=== PATIENT | male | born 1965 | race Caucasian/White ===

== ENCOUNTER 2019-04-30 05:56 | Inpatient (IN) | payer BC, SELFPAY ==
[2019-04-30] VITALS (20 sets, daily range): BP systolic 87–139; BP diastolic 58–84; PULSE 84–100; RESP 12–21; TEMP 36.1–37.6; O2SAT 95–100; BMI 29.2; BMI 29.0; BMI 29.1
[2019-04-30 06:20] LABS: Absolute Lymphocyte Count 1.22 X10^3/uL (0.83-4.51); Absolute Neutrophil Count 2.7 X10^3/uL (2.0-7.7); Basophil# 0.04 X10^3/uL; Basophil% 0.9 % (0-1); Eosinophil# 0.14 X10^3/uL; Eosinophils% 3.1 % (0-5); Hematocrit 35.1 % (40-54); Hemoglobin 11.2 g/dL (13.0-16.5); Lymphocyte # 1.22 X10^3/ul (4.0); Mean Corp Hgb Conc 31.9 g/dL (32-36); Mean Corpuscular Hgb 28.8 pg (27.0-32.0); Mean Corpuscular Volume 90.2 fL (80-94); Mean Platelet Vol. 9.4 fl (6.2-12.0); Monocyte# 0.36 X10^3/uL; NRBC Flagged by Analyzer 0 % (0-5); Neutrophil # 2.74 X10^3/uL (2.7-7.7); Neutrophil % 60.6 % (47-70); Platelet Count 288 K/mm3 (150-450); RBC Distribution Width SD 46.1 fl (35.1-43.9); Red Blood Count 3.89 M/mm3 (4.6-6.2); White Blood Count 4.5 K/mm3 (4.4-11.0)
[2019-04-30] MEDS: 0.9% Normal Saline 1,000 ML 1000 ML IV (06:22)
--- NOTE | 2019-04-30 06:22 | ED.VIS.GEN ---
History of Present Illness Chief Complaint: Syncope Detail of Chief Complaint: Syncope with collapse Informant: Patient, Friend Onset: Today Context: Sudden Onset Timing: Intermittent Quality: Became pale, diaphoretic with nausea prior to collapsing Location: Work Current Severity: Mild Maximum Severity: Severe Worsened by: Uncertain Relieved by: Better after patient was supine Associated Symptoms: Orthostatic symptoms and dark stool Narrative: Patient is a 53-year-old male with history of peptic ulcer disease who has been taking NSAIDs recently presents with single episode. He was driving to work. He felt sick to his stomach. He felt he needed to use the restroom. Walking to the restroom he collapsed. He was found facedown. There was no noted seizure activity. He had incontinence of stool not urine. There is no history of seizures. He denies headache. He denies visual, ocular auditory symptoms. Denies neck pain. Nu[place] paresthesia, anesthesia motors. Does have an abrasion to the upper lip. He states he has had a GI bleed in the past. He states the stool is not black and does not have an odor to his knowledge. He is on no anticoagulant. He presently does not feel well. He denies cardiac or respiratory symptoms. He denies paresthesia, anesthesia motors. Prior similar symptoms: No Recent Illness/Hospitalization: No - Past Medical History (1) Peptic ulcer disease Status: Acute (2) Hypercholesterolemia Status: Acute Past Medical History - Allergies and Home Meds Allergies/Adverse Reactions: Allergies No Known Allergies Allergy (Verified 04/30/19 06:03) Primary Care Physician: Demetri Benedict [Primary Care Provider] - Prior records reviewed: Yes Surgical History: no surgical history Lives: Alone Smoking Status: Never smoker Alcohol: None Drugs: None Review of Systems General: Denies: Chills, Fever Eyes: Denies: Visual changes - bilaterally, Blurred Vision - bilaterally ENT: Denies: Bilateral ear pain, Rhinorrhea, Sore throat Cardiovascular: Denies: Chest pain, Palpitations Respiratory: Denies: Dyspnea, Cough, Dyspnea on exertion Gastrointestinal: Denies: Abdominal pain, Nausea, Vomiting, Diarrhea, Melena, Hematochezia Genitourinary: Denies: Dysuria, Hematuria, Frequency Musculoskeletal: Denies: Myalgias, Arthralgias, Neck pain, Back pain, Swelling, Extremity Pain, -, - Skin: Reports: Abrasions. Denies: Rash, Wounds Neurological: Denies: Headache, Weakness, Parasthesia, Numbness Endocrine: Denies: Polyuria, Polydipsia Hematologic: Denies: Easy bruising, Easy bleeding Physical Exam Vital Signs/Narrative: Vital Signs Temp Pulse Pulse Pulse Resp BP BP 04/30/19 06:13 89 87 114/72 04/30/19 05:57 98.1 F 88 20 H 119/80 BP BP Pulse Ox 04/30/19 06:13 111/77 106/70 04/30/19 05:57 97 Inital Vital Signs reviewed: Yes General: Well nourished, Well developed, - - Looks pale. Head: Normocephalic, Trauma, - - Full depression. No clinical findings of basilar skull fracture. Eyes: Perrl, EOMI, - - No subconjunctival hemorrhage.. Negative for: Pale conjunctiva, Scleral icterus ENT: Moist mucous membranes, No rhinorrhea, TM's clear. Negative for: Dry mucous membranes, Nasal congestion, Sinus tenderness Neck: Supple, Nontender, No lymphadenopathy, No JVD, - - Pain to palpation of cervical spine with full active range of motion. Cardiovascular: Regular rate, Regular rhythm, No murmurs, Normal S1, Normal S2 Respiratory: No distress, CTA bilaterally, Chest nontender Abdomen: Soft, Nontender, Nondistended, Normal bowel sounds, No masses. Negative for: Hepatomegaly, Splenomegaly, Mass, Pulsatile mass Rectal: - - Melena Back: Nontender, Normal Inspection Extremities: Nontender, No edema Skin: No rash, Pallor, Trauma. Negative for: Normal color Neurological: Alert, Oriented x3, Cranial nerves II-XII grossly intact, Normal Strength, Normal Sensation, Normal DTR, Normal Gait Psychological: Normal affect Diagnostic/Tx/Re-eval Chest X-Ray - ED: 1 View, Read by ED Physician Laboratory Results 04/30/19 04/30/19 06:15 06:15 WBC 4.5 RBC 3.89 L Hgb 11.2 L Hct 35.1 L MCV 90.2 MCH 28.8 MCHC 31.9 L RDW Std Deviation 46.1 H RDW Coeff of Rachel 14.0 Plt Count 288 MPV 9.4 Immature Gran % (Auto) 0.400 Neut % (Auto) 60.6 Lymph % (Auto) 27.0 [place] % (Auto) 8.0 Eos % (Auto) 3.1 Baso % (Auto) 0.9 Absolute Neuts (auto) 2.7 Absolute Lymphs (auto) 1.22 Nucleated RBC % 0 Sodium 140 Potassium 4.5 Chloride 109 H Carbon Dioxide 27.0 Anion Gap 4 L BUN 42 H Creatinine 0.97 Estim Creat Clear Calc 91.98 Est GFR (MDRD) Af Amer 104 Est GFR (MDRD) Non-Af 86 BUN/Creatinine Ratio 43.3 H Glucose 158 H Calcium 8.2 L H&H is 11.2 and 35.1. There is no prior labs for comparison. BUN to creatinine ratio is markedly elevated. With orthostatic symptoms and melena patient was typed and screened. Dr. Frazier will be paged at 7 AM since patient will require EGD and admission to ICU. He will receive Protonix IV push. NG was ordered to determine if he is actively bleeding. - Medical Decision Making Orthostatic vital signs were positive. He could not stand. He became pale lightheaded and had to sit. With history of peptic ulcer disease dark stool need to evaluate for GI bleed. He was see 1 L of normal saline wide open. Appropriate blood work was ordered to assess BUN to creatinine ratio, H&H. I was informed that he he did have incontinence of stool. Will assess the color of her stool and test for blood. - Critical Care Time Critical care time (excluding procedures): 30-74 minutes, Discussing w/Patient &/or Family/Production Line, Discussing w/Consultants, Arranging Admission or Transfer - Critical care time 33 minutes ED Disposition - Plan for ED Patient: Disposition: Home or Assisted Living Diagnosis: GI bleed, Orthostatic hypotension, Syncope and collapse Referrals: Demetri Benedict [Primary Care Provider] -
[2019-04-30 06:34] LABS: Anion Gap 4 (5-15); BUN 42 mg/dL (7-18); BUN/Creat Ratio 43.3 RATIO (10-20); Calcium,Total 8.2 mg/dL (8.5-10.1); Chloride 109 mmol/L (98-107); Creatinine, Serum 0.97 mg/dL (0.70-1.30); EST Glomerular Filtration Rate 86 mL/min (>60); Est Glom Filt Rate - Afr Amer 104 mL/min (>60); Estimated Creatinine Clearance 91.98 ml/min; Glucose 158 mg/dL (74-106); Potassium 4.5 mmol/L (3.5-5.1); Sodium Level 140 mmol/L (136-145)
--- NOTE | 2019-04-30 06:55 | ED.RN ---
PATIENT WAS INCONTINENT OF A LARGE AMOUNT OF THICK TAR STOOL. INCONTINENCE CARE DONE. DR. PAL.
--- NOTE | 2019-04-30 06:58 | EKG12_ITS ---
Test Reason : Blood Pressure : / mmHG Vent. Rate : 090 BPM Atrial Rate : 090 BPM P-R Int : 154 ms QRS Dur : 098 ms QT Int : 358 ms P-R-T Axes : 055 005 028 degrees QTc Int : 437 ms Normal sinus rhythm Normal ECG Confirmed by JIM SNELL, JAVIER ([id number]), publications editor ROSANA ESTRADA ([id number]) on 05/04/2019 10:36:46 AM Referred By: KRISTINA Confirmed By:LALO FERNANDEZ MD
--- NOTE | 2019-04-30 07:23 | RAD_ITS ---
STUDY: X-RAY - ABDOMEN REASON FOR EXAM: Male, 53 years old. NG tube placement for GI bleed TECHNIQUE: Single AP view of the abdomen. The pelvis and lower abdomen are not included in the image. COMPARISON: None. FINDINGS: Normal visualized lung bases. Tip of the nasogastric tube is in the proximal body of the stomach. However, the sidehole for the tube projects above the level of the diaphragmatic hiatus and it is probably in the esophagus. There is an unremarkable bowel gas pattern. There is no demonstrated free abdominal air. The visualized liver, spleen and kidneys are grossly normal in size and morphology. Normal soft tissue structures. Normal visualized osseous structures. RAD/Abdomen Single View IMPRESSION: Tip of the nasogastric tube is in the stomach, however, the sidehole is probably within the distal esophagus. Recommend advancing the nasogastric tube at least 5 cm. Electronically Signed: Dhiraj William MD at 8:01 EST , Service support ,
--- NOTE | 2019-04-30 08:06 | ED.RN ---
PATIENT HAD A MEDIUM SIZED BLACK TARRY STOOL ON THE BED SILVERMAN. INCONTINENCE CARE DONE.
--- NOTE | 2019-04-30 08:31 | HP.PCM_ITS ---
Problem List (1) GI bleed Status: Acute Qualifiers: GI bleed type/associated pathology: unspecified gastrointestinal hemorrhage type Qualified Code(s): K92.2 - Gastrointestinal hemorrhage, unspecified (2) Syncope and collapse Status: Acute History of Present Illness Date of Admission: 04/30/19 Chief Complaint: syncope The patient is a 53 year old M was in his normal state of health and then today felt and urgency to have bowel movements. Got out of the car to go to the bathroom and then passed out. Patient was brought to the hospital and when he presented had a very large dark melena. Patient did not have any hematemesis. NG tube was placed and did not have any significant bleeding. Patient about a month ago fell when he was intoxicated and broke some ribs. Since then, he has been taking aspirin twice daily. He does not know the dosing of the aspirin. Patient had a similar situation roughly 8 years ago where he had peptic ulcer disease and melena. [] Past Medical History Medical History: Medical History (Last Updated 04/30/19 @ 08:32 by Dar Sánchez DO) Hypercholesteremia E78.00 Allergies No Known Allergies Allergy (Verified 04/30/19 06:03) Home Medications: Ambulatory Orders Medication Instructions Recorded Ezetimibe 1 tab PO DAILY 04/30/19 Fenofibrate Nanocrystallized 1 tab PO DAILY 04/30/19 [Fenofibrate] Surgical History: no surgical history Lives: Alone Smoking Status: Never smoker Alcohol: Occasional - 2 times/week Drugs: None - *Family History Maternal History Items: - - no CAD Review of Systems Constitutional: Reports: Weakness. Denies: Anorexia, Chills, Fever Eyes: Denies: Blurred vision, Double vision HEENT: Denies: Difficulty Hearing, Difficulty Swallowing, Dysphasia, Ear Pain, Eye Pain Cardiovascular: Denies: Chest Pain, Claudication, Chest Pressure, Chest Tightness, Edema Respiratory: Denies: Cough, Shortness of Breath Gastrointestinal: Reports: Melena. Denies: Abdominal Pain, Nausea, Vomiting Genitourinary: Denies: Dysuria Musculoskeletal: Denies: Joint Pain, Joint Tenderness Skin: Denies: Dryness, Jaundice Neurological: Denies: Numbness, Tingling, Focal weakness Psychiatric: Denies: Anxiety, Depression Hematologic/ Lymphatic: Denies: Easy Bruising, Easy Bleeding Comment: All review systems are otherwise negative except for as mentioned above and in HPI. VTE Information - Inpt Only VTE Present on Admission: No VTE Mechan Device Prophylaxis: SCD's VTE Pharm Prophylaxis ordered?: No Reason prophylaxis not ordered:: Medical Contraindication Patient Problems: Active and Suspected Problems (Last Updated 04/30/19 @ 08:32 by Dar Sánchez DO) Peptic ulcer disease (Acute) Hypercholesterolemia (Acute) GI bleed (Acute) Orthostatic hypotension (Acute) Syncope and collapse (Acute) - Physical Exam Vitals/I&O's: Vital Signs Temp Pulse Resp BP Pulse Ox 36.7 C 85 21 H 102/62 96 04/30/19 05:57 04/30/19 08:06 04/30/19 08:06 04/30/19 08:06 04/30/19 08:06 Oxygen Delivery Method Room Air Weight: 92.533 kg Body Mass Index (BMI) 29.2 Intake and Output for Last 24 Hours 04/28/19 04/29/19 04/30/19 23:59 23:59 23:59 Intake Total 1035 / 1035 Balance 1035 / 1035 General: Alert, Cooperative, - - pale HEENT: Atraumatic, Normocephalic, - - no icterus Oral: Moist Mucosa, No Gingival or Mucosal Lesions/ Ulcerations Neck: No Nodes, Trachea Midline Lungs: Clear to auscultation, Normal air movement, No rhonchi, No wheeze, No rales Cardiovascular: Regular rate, Regular Rhythm, Normal S1, Normal S2, No murmurs Abdomen: Bowel Sounds Present, Soft, Non Tender, Non-Distended, No Hepato- splenomegaly, - - Patient had dark gelatinous melena Extremities: No edema, No Calf Tenderness Skin: No rashes, No breakdown Musculoskeletal: No Tenderness to Palpation of Joints or Extremities, No Muscle Wasting Neurological: Neuro grossly intact, Coordination normal Psych/Mental Status: Appropriate, Flat Affect Laboratory Results 04/30/19 06:15: WBC 4.5, RBC 3.89 L, Hgb 11.2 L, Hct 35.1 L, MCV 90.2, MCH 28.8, MCHC 31.9 L, RDW Std Deviation 46.1 H, RDW Coeff of Rachel 14.0, Plt Count 288, MPV 9.4, Immature Gran % (Auto) 0.400, Neut % (Auto) 60.6, Lymph % (Auto) 27.0, [place] % (Auto) 8.0, Eos % (Auto) 3.1, Baso % (Auto) 0.9, Absolute Neuts (auto) 2.7, Absolute Lymphs (auto) 1.22, Nucleated RBC % 0 04/30/19 06:15: Sodium 140, Potassium 4.5, Chloride 109 H, Carbon Dioxide 27.0, Anion Gap 4 L, BUN 42 H, Creatinine 0.97, Estim Creat Clear Calc 91.98, Est GFR (MDRD) Af Amer 104, Est GFR (MDRD) Non-Af 86, BUN/Creatinine Ratio 43.3 H, Glucose 158 H, Calcium 8.2 L 04/30/19 07:05: Blood Type AB POSITIVE, Antibody Screen NEGATIVE Assessment/Plan All Active Problems (Last Updated 04/30/19 @ 08:32 by Dar Sánchez DO) Peptic ulcer disease (Acute) Hypercholesterolemia (Acute) GI bleed (Acute) Orthostatic hypotension (Acute) Syncope and collapse (Acute) 1. Acute GI bleed * Suspected upper source * Patient has known history of peptic ulcer disease roughly 8 years ago and has recently been taking aspirin twice daily for broken rib that he sustained when he fell when he was intoxicated * Will place the patient on a Protonix drip. Patient did receive IV pantoprazole in the emergency room * Discussed with Dr. Frazier, who will see the patient in consultation and will look to possibly performing an endoscopy today. * Patient to be screened in the emergency room. We will cycle H&H every 6 hours for the next 24 hours 2. Syncope * May be vasovagal but cannot rule out acute blood loss at this time. Is possible the blood count may be lagging behind the actual levels * IV fluids 3. VTE prophylaxis: SCDs. Chemical prophylaxis is contraindicated in light of the acute hemorrhage. Code Visit Inpatient E&M: 24138 Init Hosp L3
--- NOTE | 2019-04-30 09:01 | CON.PCM_ITS ---
Problem List (1) GI bleed Status: Acute Qualifiers: GI bleed type/associated pathology: unspecified gastrointestinal hemorrhage type Qualified Code(s): K92.2 - Gastrointestinal hemorrhage, unspecified (2) Orthostatic hypotension Status: Acute (3) Syncope and collapse Status: Acute Reason for Consult Date of Consultation: 04/30/19 Reason for Consultation: GI bleed History of Present Illness: The patient is a 53 year old M who presented to the ED following a syncopal episode just prior to work. Patient stated he was riding to work and was not feeling well. He noted feeling dizzy and nauseated. Patient also noted he felt as though he needed to have a bowel movement. When he went to get out of his car, he collapsed and went unconscious. This was apparently a witnessed fall. Patient's friend was in the room during the interview and noted the patient hit his head and lip in the parking lot and also stated he was convulsing. Bystander called 911. Bystander noted patient's entire body was shaking for approximately 1 minute. Patient noted darker than normal stools for the last several days. He denies bright red blood or tarry stools at home. He denies hematemesis. He notes taking full strength aspirin twice daily for 1 month for a broken rib. He noted he fell while intoxicated. He noted in the ED he was incontinent of stool and had two moderate sized black tarry stools. Patient notes he had similar symptoms approximately 8 years ago and was hospitalized at [facility]. He had an upper scope at that time. He notes he was on medication for a short time period and then stopped. He denies previous myocardial infarction, stroke and blood clots. He denies previous history of complications with anesthesia. He denies previous colonoscopy. He denies smoking and illicit drug use. He notes consuming alcohol weekly. He was not specific on how much he drinks. Past Medical History Medical History: Medical History (Last Reviewed 04/30/19 @ 10:53 by Susan Ervin PA-C) Hypercholesteremia E78.00 Allergies No Known Allergies Allergy (Verified 04/30/19 06:03) Home Medications: Ambulatory Orders Medication Instructions Recorded Ezetimibe 1 tab PO DAILY 04/30/19 Fenofibrate Nanocrystallized 1 tab PO DAILY 04/30/19 [Fenofibrate] Fluticasone 0.05% [Flonase Nasal 2 spry NARES DAILY 04/30/19 [place]] Surgical History: - - Cervical surgery 2000 and EGD 8 years ago Psychiatric History: No pertinent psych hx Lives: Alone Smoking Status: Never smoker Alcohol: Occasional Drugs: None - *Family History Maternal History Items: - - no CAD Paternal History Items: No pertinent history Review of Systems Constitutional: Reports: Weakness, Fatigue HEENT: Denies: Head Aches, Sinus Congestion, Sinus Drainage Cardiovascular: Denies: Chest Pain, Palpitations Respiratory: Denies: Cough, Shortness of breath at rest, Sputum production Gastrointestinal: Reports: Diarrhea, Nausea, Melena. Denies: Abdominal Pain Genitourinary: Denies: Dysuria Musculoskeletal: Denies: Joint Pain, Joint Tenderness Skin: Reports: Wounds. Denies: Rash Neurological: Denies: Numbness, Tingling, Focal weakness Psychiatric: Denies: Anxiety, Depression, Homicidal Ideations, Suicidal Ideations Hematologic/ Lymphatic: Reports: Anemia. Denies: Easy Bruising, Easy Bleeding Patient Problems: Active and Suspected Problems (Last Updated 04/30/19 @ 08:32 by Dar Sánchez DO) Peptic ulcer disease (Acute) Hypercholesterolemia (Acute) GI bleed (Acute) Orthostatic hypotension (Acute) Syncope and collapse (Acute) - Physical Exam Vitals/I&O's: Vital Signs Temp Pulse Resp BP Pulse Ox 97.3 F L 89 16 122/79 H 97 04/30/19 08:40 04/30/19 08:40 04/30/19 08:40 04/30/19 08:40 04/30/19 08:40 Oxygen Delivery Method Room Air Weight: 204 lb Body Mass Index (BMI) 29.2 Intake and Output for Last 24 Hours 04/28/19 04/29/19 04/30/19 23:59 23:59 23:59 Intake Total 1035 / 1035 Balance 1035 / 1035 General: Alert, Oriented x3, Cooperative HEENT: Atraumatic, PERRLA, EOMI, Normocephalic, - - Bloody nose noted Neck: Supple, No JVD, Negative Carotid Bruits Lungs: Clear to auscultation, Normal air movement Cardiovascular: Regular rate, No murmurs Abdomen: Soft, Hypoactive Bowel Sounds, Tender - epigastric region Extremities: No edema, Capillary Refill Less than 3 Seconds Skin: - - Abrasion on left forehead Musculoskeletal: No Tenderness to Palpation of Joints or Extremities Neurological: Neuro grossly intact Psych/Mental Status: Normal Affect, Appropriate Laboratory Results 04/30/19 06:15: WBC 4.5, RBC 3.89 L, Hgb 11.2 L, Hct 35.1 L, MCV 90.2, MCH 28.8, MCHC 31.9 L, RDW Std Deviation 46.1 H, RDW Coeff of Rachel 14.0, Plt Count 288, MPV 9.4, Immature Gran % (Auto) 0.400, Neut % (Auto) 60.6, Lymph % (Auto) 27.0, [place] % (Auto) 8.0, Eos % (Auto) 3.1, Baso % (Auto) 0.9, Absolute Neuts (auto) 2.7, Absolute Lymphs (auto) 1.22, Nucleated RBC % 0 04/30/19 06:15: Sodium 140, Potassium 4.5, Chloride 109 H, Carbon Dioxide 27.0, Anion Gap 4 L, BUN 42 H, Creatinine 0.97, Estim Creat Clear Calc 91.98, Est GFR (MDRD) Af Amer 104, Est GFR (MDRD) Non-Af 86, BUN/Creatinine Ratio 43.3 H, Glucose 158 H, Calcium 8.2 L 04/30/19 07:05: Blood Type AB POSITIVE, Antibody Screen NEGATIVE Current Medications Acetaminophen (Tylenol) 650 mg RECTAL Q4H PRN PRN PRN Reason: Pain Score 1-10/Temp > 100.7 F Acetaminophen (Tylenol) 650 mg PO Q6H PRN PRN PRN Reason: Pain Score 1-10/10 Glucagon () 1 mg IM .X1 PRN PRN Reason: Hypoglycemia Sodium Chloride () 1,000 mls @ 150 mls/hr IV .Q6H40M LISA Dextrose (Dextrose 10%-Water) 250 mls @ 999 mls/hr IV .Q16M PRN; Protocol PRN Reason: HYPOGLYCEMIA Morphine Sulfate () 2 mg IV Q3H PRN PRN PRN Reason: Pain Score 6-10/10 Ondansetron HCl (Zofran) 4 mg IV Q8H PRN PRN PRN Reason: NAUSEA/VOMITING Sodium Chloride () 10 - 40 ml IV UD PRN PRN Reason: SALINE FLUSH Assessment/Plan All Active Problems (Last Updated 04/30/19 @ 08:32 by Dar Sánchez DO) Peptic ulcer disease (Acute) Hypercholesterolemia (Acute) GI bleed (Acute) Orthostatic hypotension (Acute) Syncope and collapse (Acute) I have been consulted in conjunction with Dr. Frazier Impression: Upper GI bleed. Melena Plan: Patient was discussed with Dr. Frazier. Dr. Frazier will plan to perform an upper scope with MAC. Procedure details, risks and benefits have been explained to the patient. Patient has had the opportunity to ask and have questions answered. Patient verbally understands and agrees with the plan. Will place patient NPO. Keep NG tube on low intermittent suction. Hopeful NG tube can be removed after the EGD. Thank you for allowing us to participate in this patient's care. Code Visit Office Visits / Consults: [id number] IP Consult L3
[2019-04-30] MEDS: 0.9% Normal Saline 1,000 ML 150 ML IV ×3 (09:15→20:08)
[2019-04-30] MEDS: Acetaminophen 325 MG Tablet 650 MG PO ×2 (09:16→20:07)
--- NOTE | 2019-04-30 10:35 | CT_ITS ---
STUDY: CT BRAIN WITHOUT CONTRAST REASON FOR EXAM: Male, 53 years old. PT STATED SYNCOPE AND COLLAPSE TODAY, ORTHOSTATIC HYPOTENSION, UPPER GI BLEED RADIATION DOSAGE (If Supplied By Facility): CTDIvol = ( 44.99 ) mGy, DLP = ( 745.49 ) mGycm TECHNIQUE: Transaxial CT imaging of the brain was performed without administration of intravenous contrast material. Individualized dose optimization techniques were used for this CT. COMPARISON: No relevant priors. FINDINGS: Normal soft tissue structures. Normal calvarium. Normal size ventricles and extra-axial spaces for the patient''s age. Normal white matter tracts of the cerebral hemispheres. Normal basal ganglia and thalami. Normal brainstem. Normal cerebellum. There is no intracranial hemorrhage. There are no findings of an acute ischemic infarction. Normal visualized paranasal sinuses. CT/Brain/Head without Contrast IMPRESSION: Normal unenhanced CT scan of the brain. Electronically Signed: Theodore Greenwood MD at 11:01 EST Tel , Service support ,
--- NOTE | 2019-04-30 11:03 | SUR.PREOP ---
Pt. checked into healthcare consulting manager.
--- NOTE | 2019-04-30 11:30 | EGD_PTH ---
PATIENT: BEE GARRETT LOC: [facility] U#:[id number] AGE/SX: 53/M ROOM: [facility] RE04/30/[address]: Dr. Dar Sánchez DO : 1965 BED: 1 DIS: 05/02/2019 SPEC #: [id number] RECD: 04/30/19 13:41 STATUS: HOANG RE #: [id number] ARUNA: 04/30/19 11:[address]: Suhail Frazier DEPT: SURGICAL PATHOLOGY RECD BY: Mark Shannon ENTERED: 04/30/19 14:16 SP TYPE: EGD BIOPSY OTHR DR: MD Dr. Dar Lew DO Dr. Mehrdad Tavallaee, MD Tissues: Gastric mucous membrane Procedures: Surgery Specimen Level IV Comments: @ Ordering doctor for SUIV edited from to @ by ZEINA at 04/30/19 1438 @ Submitting doctor edited from to @ by ZEINA at 04/30/19 1438 HEADER OPERATION: EGD ([facility]) PRE-OP DIAGNOSIS: GI bleed TISSUE SUBMITTED: Antrum biopsy for H. pylori and histo MICROSCOPIC DIAGNOSIS Antrum biopsy: Mild gastritis. See microscopic description and comment. ARELY:bridget 05/01/19 COMMENT The results of immunohistochemistry for Helicobacter pylori will be reported separately ([id number]). MICROSCOPIC DESCRIPTION Slides are reviewed. The specimen shows fragments of gastric mucosa with chronic inflammatory cell infiltrates in the lamina propria consisting of lymphocytes and plasma cells, consistent with mild chronic gastritis. GROSS DESCRIPTION Received in fixative is one container labeled with the patient's name and designated antrum biopsy. The specimen consists of multiple irregular fragments of light porras soft tissue that in aggregate measure 0.8 x 0.3 x 0.1 cm. The specimen is totally submitted in one cassette. / ARELY:bridget 04/30/19 TC:5 CPT: 43440
--- NOTE | 2019-04-30 11:30 | IMM_PTH ---
PATIENT: BEE GARRETT LOC: [facility] U#:[id number] AGE/SX: 53/M ROOM: [facility] RE04/30/[address]: Dr. Dar Sánchez DO : 1965 BED: 1 DIS: 05/02/2019 SPEC #: [id number] RECD: 04/30/19 14:42 STATUS: HOANG REQ #: [id number] ARUNA: 04/30/19 11:[address]: Suhail Frazier DEPT: IMMUNOHISTOCHEMISTRY RECD BY: Vickie Worley ENTERED: 04/30/19 14:42 SP TYPE: IMMUNO OTHR DR: DO Dr. Demetri Wong MD Tissues: Stomach, NOS Procedures: H Pylori (initial) PHYSICIAN & INSTITUTION [place] [id number] SPECIMEN INFORMATION: Tissue Source: Antrum biopsy Clinical Info: GI bleed Specimen Number: [id number] CPT code: 80157 METHODOLOGY: Deparaffinized sections of prefer/formalin-fixed tissue or PAP/DQ stained slides are incubated with monoclonal/polyclonal antibodies/oligonucleotide probes. Localization is made via biotin free immunoperoxidase method. Appropriate controls are performed and reacted as expected. Results on target cell population are indicated in the following table: RESULTS: ANTIBODY / CLONE RESULT H Pylori (polyclonal) negative These tests were developed and their performance characteristics determined by [facility]. They may not have been cleared or approved by the U.S. Food and Drug Administration. The FDA has determined that such clearance or approval is not necessary. INTERPRETATION: Antrum biopsy: Negative for Helicobacter pylori organisms. SJ:bridget 05/01/19
--- NOTE | 2019-04-30 11:42 | OP.EGD_ITS ---
Patient Name: Jose Hoyos Procedure Date: 04/30/2019 11:02 AM Date of : 1965 Age: 53 Procedure: Upper GI endoscopy Indications: Melena Providers: Suhail Frazier MD Medicines: Monitored Anesthesia Care Patient Profile: This is a 53 year old male. Refer to note in patient chart for documentation of history and physical. Complications: No immediate complications. Estimated blood loss: Minimal. Procedure: Pre-Anesthesia Assessment: - Prior to the procedure, a History and Physical was performed, and patient medications and allergies were reviewed. The patient's tolerance of previous anesthesia was also reviewed. The risks and benefits of the procedure and the sedation options and risks were discussed with the patient. All questions were answered, and informed consent was obtained. Prior Anticoagulants: The patient has taken aspirin, last dose was 1 day prior to procedure. After reviewing the risks and benefits, the patient was deemed in satisfactory condition to undergo the procedure. After obtaining informed consent, the endoscope was passed under direct vision. Throughout the procedure, the patient's blood pressure, pulse, and oxygen saturations were monitored continuously. The gastroscope was introduced through the mouth, and advanced to the second part of duodenum. The upper GI endoscopy was accomplished without difficulty. The patient tolerated the procedure well. Scope In: 11:28:22 AM Scope Out: 11:38:15 AM Total Procedure Duration Time 0 hours 9 minutes 53 seconds Findings: A large amount of a phytobezoar was found in the gastric fundus. One non-bleeding cratered duodenal ulcer with no stigmata of bleeding was found in the second portion of the duodenum. Biopsies were taken with a cold forceps in the gastric antrum for Helicobacter pylori testing. Impression: - A large amount of a phytobezoar in the stomach. - One non-bleeding duodenal ulcer with no stigmata of bleeding. - Biopsies were taken with a cold forceps for Helicobacter pylori testing. Recommendation: - Return patient to [facility] for ongoing care. - Clear liquid diet. - Continue present medications. Procedure Code(s): --- Professional --- 34019, Esophagogastroduodenoscopy, flexible, transoral; with biopsy, single or multiple Diagnosis Code(s): --- Professional --- T18.2XXA, Foreign body in stomach, initial encounter K26.9, Duodenal ulcer, unspecified as acute or chronic, without hemorrhage or perforation K92.1, Melena (includes Hematochezia) CPT copyright 2017 [employer]. All rights reserved. The codes documented in this report are preliminary and upon director of exhibits review may be revised to meet current compliance requirements. Suhail Frazier MD 04/30/2019 11:41:32 AM This report has been signed electronically. Number of Addenda: 0 Note Initiated On: 04/30/2019 11:02 AM
--- NOTE | 2019-04-30 11:42 | OP.CCLET_ITS ---
04/30/2019 Demetri Benedict Re : Upper GI endoscopy procedure for Jose Hoyos Dear Jak This procedure was performed on April. My impressions and recommendations are as follows: Impressions : - A large amount of a phytobezoar in the stomach. - One non-bleeding duodenal ulcer with no stigmata of bleeding. - Biopsies were taken with a cold forceps for Helicobacter pylori testing. Recommendations : - Return patient to [facility] for ongoing care. - Clear liquid diet. - Continue present medications. My findings are described in the full procedure note, which is enclosed. If I can be of further assistance, please feel free to contact me at Doctor phone number(s): , Work: . Sincerely, Suhail Frazier MD 04/30/2019 11:41:32 AM This report has been signed electronically.
[2019-04-30 12:53] LABS: Hematocrit 31.4 % (40-54); Hemoglobin 10.1 g/dL (13.0-16.5)
[2019-04-30] MEDS: Sucralfate 1 GM Tablet PO ×2 (15:49→20:07)
[2019-04-30 18:13] LABS: Hemoglobin 9.4 g/dL (13.0-16.5)
[2019-05-01] VITALS (15 sets, daily range): BP systolic 98–125; BP diastolic 59–84; PULSE 81–107; RESP 16–18; TEMP 36.6–37; O2SAT 95–99
[2019-05-01 00:41] LABS: Hematocrit 26.9 % (40-54); Hemoglobin 8.9 g/dL (13.0-16.5)
[2019-05-01] MEDS: 0.9% Normal Saline 1,000 ML 150 ML IV (02:53)
[2019-05-01] MEDS: Sucralfate 1 GM Tablet PO ×4 (06:13→20:58)
[2019-05-01 06:41] LABS: Hematocrit 26.6 % (40-54); Hemoglobin 8.5 g/dL (13.0-16.5); Mean Corpuscular Hgb 28.8 pg (27.0-32.0); Mean Corpuscular Volume 90.2 fL (80-94); Mean Platelet Vol. 9.5 fl (6.2-12.0); Platelet Count 251 K/mm3 (150-450); RBC Distribution Width CV 14.6 % (11.6-14.6); RBC Distribution Width SD 47.1 fl (35.1-43.9); Red Blood Count 2.95 M/mm3 (4.6-6.2); White Blood Count 5.3 K/mm3 (4.4-11.0)
[2019-05-01 07:01] LABS: Anion Gap 1 (5-15); BUN 17 mg/dL (7-18); BUN/Creat Ratio 17.5 RATIO (10-20); Chloride 116 mmol/L (98-107); Creatinine, Serum 0.97 mg/dL (0.70-1.30); EST Glomerular Filtration Rate 86 mL/min (>60); Est Glom Filt Rate - Afr Amer 104 mL/min (>60); Estimated Creatinine Clearance 91.98 ml/min; Glucose 102 mg/dL (74-106); Potassium 3.8 mmol/L (3.5-5.1); Sodium Level 145 mmol/L (136-145)
--- NOTE | 2019-05-01 07:51 | PCM.PN.SRG ---
Patient Problems: Active and Suspected Problems (Last Reviewed 04/30/19 @ 10:53 by Susan Ervin PA-C) Peptic ulcer disease (Acute) Hypercholesterolemia (Acute) GI bleed (Acute) Orthostatic hypotension (Acute) Syncope and collapse (Acute) Subjective: Patient continues to have black tarry stools overnight and this morning. He is not complaining of any abdominal pain. Complains of left knee pain. - Physical Exam Vitals/I&O's: Vital Signs Temp Pulse Resp BP Pulse Ox 98.1 F 88 17 108/65 97 05/01/19 06:15 05/01/19 06:15 05/01/19 06:15 05/01/19 06:15 05/01/19 06:15 Oxygen Delivery Method Room Air Weight: 202 lb 13.204 oz Body Mass Index (BMI) 29.0 Intake and Output for Last 24 Hours 04/29/19 04/30/19 05/01/19 23:59 23:59 23:59 Intake Total 4740.0 / 4740.0 2550 / 2550 Output Total 775 / 775 150 / 150 Balance 3965.0 / 3965.0 2400 / 2400 General: Alert, Oriented x3 Neck: No JVD Lungs: Normal air movement Cardiovascular: Regular rate, Regular Rhythm Abdomen: Soft, Non Tender, Non-Distended Laboratory Results 04/30/19 12:36: Hgb 10.1 L, Hct 31.4 L 04/30/19 18:00: Hgb 9.4 L, Hct 29.0 L 05/01/19 00:17: Hgb 8.9 L, Hct 26.9 L 05/01/19 06:20: WBC 5.3, RBC 2.95 L, Hgb 8.5 L, Hct 26.6 L, MCV 90.2, MCH 28.8, MCHC 32.0, RDW Std Deviation 47.1 H, RDW Coeff of Rachel 14.6, Plt Count 251, MPV 9.5 05/01/19 06:20: Sodium 145, Potassium 3.8, Chloride 116 H, Carbon Dioxide 28.0, Anion Gap 1 L, BUN 17, Creatinine 0.97, Estim Creat Clear Calc 91.98, Est GFR (MDRD) Af Amer 104, Est GFR (MDRD) Non-Af 86, BUN/Creatinine Ratio 17.5, Glucose 102, Calcium 8.0 L Current Medications Acetaminophen (Tylenol) 650 mg RECTAL Q4H PRN PRN PRN Reason: Pain Score 1-10/Temp > 100.7 F Acetaminophen (Tylenol) 650 mg PO Q6H PRN PRN PRN Reason: Pain Score 1-10/10 Last Admin: 04/30/19 20:07 Dose: 650 mg Documented by: Glucagon () 1 mg IM .X1 PRN PRN Reason: Hypoglycemia Sodium Chloride () 1,000 mls @ 150 mls/hr IV .Q6H40M [facility] Last Admin: 05/01/19 02:53 Dose: 150 mls/hr Documented by: Dextrose (Dextrose 10%-Water) 250 mls @ 999 mls/hr IV .Q16M PRN; Protocol PRN Reason: HYPOGLYCEMIA Pantoprazole Sodium 40 mg/ (Sodium Chloride) 110 mls @ 330 mls/hr IV Q12 [facility] Last Infusion: 04/30/19 20:35 Dose: Infused Documented by: Morphine Sulfate () 2 mg IV Q3H PRN PRN PRN Reason: Pain Score 6-10/10 Ondansetron HCl (Zofran) 4 mg IV Q8H PRN PRN PRN Reason: NAUSEA/VOMITING Sodium Chloride () 10 - 40 ml IV UD PRN PRN Reason: SALINE FLUSH Sucralfate (Carafate) 1 gm PO 1HR_ACHS [facility] Last Admin: 05/01/19 06:13 Dose: 1 gm Documented by: Medical Necessity - Tobacco Use Smoking Status: Never smoker Assessment/Plan All Active Problems (Last Reviewed 04/30/19 @ 10:53 by Susan Ervin PA-C) Peptic ulcer disease (Acute) Hypercholesterolemia (Acute) GI bleed (Acute) Orthostatic hypotension (Acute) Syncope and collapse (Acute) 53-year-old male with upper GI bleed The patient continues to have his hemoglobin slowly downtrending. He also continues to have black tarry stools. He is not having any abdominal pain. He did not have any nausea or vomiting overnight. Yesterday a duodenal ulcer was found with no stigmata of bleeding. I will repeat EGD this morning. Patient is also complaining of left knee pain. I will order x-rays of his left knee. I explained endoscopy in detail to the patient. I explained the risks including but not limited to stroke or heart attack with anesthesia, perforation of the GI tract, bleeding, infection. I explained that any of these could necessitate further emergency surgery. The patient understands and all questions were answered sufficiently. The patient wishes to proceed with procedure. Suhail Frazier MD Pager: [facility] [address] [place] [address] [address] [place] [address] Office:
[2019-05-01] MEDS: Lactated Ringers 1,000 ML 100 ML IV ×3 (07:57→23:51)
--- NOTE | 2019-05-01 07:58 | NURSING ---
pt off unit at 0738 for repeat EGD due to drop in hgb. Dr. Frazier states he will also be ordering xray of left knee due to continue pain since admission.
--- NOTE | 2019-05-01 08:44 | OP.CCLET_ITS ---
05/01/2019 Demetri Benedict Re : Upper GI endoscopy procedure for Jose Hoyos Dear Jak This procedure was performed on Wednesday, May 01, 2019. My impressions and recommendations are as follows: Impressions : - One non-bleeding duodenal ulcer with no stigmata of bleeding. - Normal esophagus. - Normal stomach. - No specimens collected. Recommendations : - Return patient to [facility] for ongoing care. - Clear liquid diet. - Continue present medications. - To visualize the small bowel, perform video capsule endoscopy. My findings are described in the full procedure note, which is enclosed. If I can be of further assistance, please feel free to contact me at Doctor phone number(s): , Work: . Sincerely, Suhail Frazier MD 05/01/2019 8:44:23 AM This report has been signed electronically.
--- NOTE | 2019-05-01 08:44 | OP.EGD_ITS ---
Patient Name: Jose Hoyos Procedure Date: 05/01/2019 8:18 AM Date of : 1965 Age: 53 Procedure: Upper GI endoscopy Indications: Melena, Suspected upper gastrointestinal bleeding Providers: Suhail Frazier MD Medicines: Monitored Anesthesia Care Patient Profile: This is a 53 year old male. Refer to note in patient chart for documentation of history and physical. Complications: No immediate complications. Estimated blood loss: None. Procedure: Pre-Anesthesia Assessment: - Prior to the procedure, a History and Physical was performed, and patient medications and allergies were reviewed. The patient's tolerance of previous anesthesia was also reviewed. The risks and benefits of the procedure and the sedation options and risks were discussed with the patient. All questions were answered, and informed consent was obtained. Prior Anticoagulants: The patient has taken no previous anticoagulant or antiplatelet agents. After reviewing the risks and benefits, the patient was deemed in satisfactory condition to undergo the procedure. After obtaining informed consent, the endoscope was passed under direct vision. Throughout the procedure, the patient's blood pressure, pulse, and oxygen saturations were monitored continuously. The gastroscope was introduced through the mouth, and advanced to the fourth part of duodenum. The upper GI endoscopy was accomplished without difficulty. The patient tolerated the procedure well. Scope In: 8:27:20 AM Scope Out: 8:30:59 AM Total Procedure Duration Time 0 hours 3 minutes 39 seconds Findings: One non-bleeding cratered duodenal ulcer with no stigmata of bleeding was found in the second portion of the duodenum. The esophagus was normal. The stomach was normal. Impression: - One non-bleeding duodenal ulcer with no stigmata of bleeding. - Normal esophagus. - Normal stomach. - No specimens collected. Recommendation: - Return patient to [facility] for ongoing care. - Clear liquid diet. - Continue present medications. - To visualize the small bowel, perform video capsule endoscopy. Procedure Code(s): --- Professional --- 35363, Esophagogastroduodenoscopy, flexible, transoral; diagnostic, including collection of specimen(s) by brushing or washing, when performed (separate procedure) Diagnosis Code(s): --- Professional --- K26.9, Duodenal ulcer, unspecified as acute or chronic, without hemorrhage or perforation K92.1, Melena (includes Hematochezia) CPT copyright 2017 [employer]. All rights reserved. The codes documented in this report are preliminary and upon ammunition specialist review may be revised to meet current compliance requirements. Suhail Frazier MD 05/01/2019 8:44:23 AM This report has been signed electronically. Number of Addenda: 0 Note Initiated On: 05/01/2019 8:18 AM
--- NOTE | 2019-05-01 08:44 | PCM.PN.BLA ---
Progress Note I performed an EGD on the patient this morning. There was no old or new blood or stigmata of bleeding or active bleeding. Patient still has a small ulcer in the duodenum which is nonbleeding with no adherent clot. Patient did not have a bezoar in the stomach today and there were no stomach contents and the entire wall of the stomach was able to be visualized with no active bleeding. I was able to get to the fourth portion of the duodenum with no signs of old blood or active bleeding or lesions. At this time I would recommend capsule endoscopy as I believe the patient may have a small bowel bleed that is ongoing. The patient just had a colonoscopy 2 years ago so I do not believe there is a malignant lesion causing the bleeding. There may be an AV malformation but the patient is not describing maroon or bloody stools, only black tarry bowel movements. I will discuss with the primary team and possibly perform a repeat colonoscopy tomorrow versus transfer the patient to somewhere with GI coverage that can do a capsule endoscopy. Suhail Frazier MD Pager: [facility] [address] [place] [address], [address] [place] [address] Office: [facility]OKE Vital Signs/Narrative: Vital Signs Temp Pulse Resp BP Pulse Ox 05/01/19 08:36 98.2 F 97 16 103/59 L 96 05/01/19 07:30 91 05/01/19 06:55 96 05/01/19 06:15 98.1 F 88 17 108/65 97
--- NOTE | 2019-05-01 09:18 | NURSING ---
pt returned to room at this time- family present.
--- NOTE | 2019-05-01 10:06 | CASEMGMT ---
RN CM RN X RAY CM to room to meet with patient for initial transition planning/care coordination assessment. RN LOYD introduced self and role at [facility]. Pt voices understanding and consents to assessment at this time. Pt resting in bed in no distress at this time. Parents and sisterAlannah, @ bedside. Pt is A/O at this time and answers all questions appropriately. Care providers, pharmacy, and demographics verified at this time. PCP: Dr Benedict in [place] Specialists: Denies Preferred Pharmacy: [facility] in [place] Insurance: [employer] Prescription Benefit: Yes Living Will/HPOA: States has both LW and Healthcare POA, who is his sister, Alannah. He states it has been a long time since completing this paperwork and he does not know where they are located. Stated would like to update/complete new AD paperwork. ESME Pat, made aware. LNOK: Parents and sister, Alannha Hoyos Living Arrangements: Lives with his parents and his sister, Alannah. Transportation: Pt states drives self and states no transportation concerns at this time. DME: Denies using any DME and denies needs. HHC/SNF: No history of either. Pt wishes to return home and states has no concerns with going home at time of discharge. CM to follow for any discharge planning/needs. Pt voices no further concerns/needs at this time. Advised pt to ask for CM if any further questions/concerns/needs arise. Voices understanding. PLAN: Home w/family support and discharge plans in place. SW to see to assist with completing new AD paperwork. Asa COMBS RN, CM
--- NOTE | 2019-05-01 10:25 | PN_ITS ---
Patient Problems: Active and Suspected Problems (Last Reviewed 04/30/19 @ 10:53 by Susan Ervin PA-C) Peptic ulcer disease (Acute) Hypercholesterolemia (Acute) GI bleed (Acute) Orthostatic hypotension (Acute) Syncope and collapse (Acute) Reason for Visit: syncope Subjective: Feels better overall. Still with melena, though notes that stool is green when he wipes. Vitals/I&O's: Vital Signs Temp Pulse Resp BP Pulse Ox 36.8 C 86 16 112/69 98 05/01/19 09:22 05/01/19 09:22 05/01/19 09:22 05/01/19 09:22 05/01/19 09:22 Oxygen Delivery Method Room Air Weight: 92 kg Body Mass Index (BMI) 29.0 Intake and Output for Last 24 Hours 04/29/19 04/30/19 05/01/19 23:59 23:59 23:59 Intake Total 4740.0 / 4740.0 3723.33 / 3723.33 Output Total 775 / 775 150 / 150 Balance 3965.0 / 3965.0 3573.33 / 3573.33 General: Alert, Cooperative, No apparent distress, - - less pale today. HEENT: Atraumatic, Normocephalic Oral: Moist Mucosa, No Gingival or Mucosal Lesions/ Ulcerations Neck: No Nodes, Trachea Midline Lungs: Clear to auscultation, Normal air movement, No rhonchi, No wheeze Cardiovascular: Regular rate, Regular Rhythm, Normal S1, Normal S2 Abdomen: Bowel Sounds Present, Soft, Non Tender, Non-Distended Extremities: No edema, No Calf Tenderness Skin: No rashes, No breakdown Psych/Mental Status: Normal Affect, Appropriate Laboratory Results 04/30/19 12:36: Hgb 10.1 L, Hct 31.4 L 04/30/19 18:00: Hgb 9.4 L, Hct 29.0 L 05/01/19 00:17: Hgb 8.9 L, Hct 26.9 L 05/01/19 06:20: WBC 5.3, RBC 2.95 L, Hgb 8.5 L, Hct 26.6 L, MCV 90.2, MCH 28.8, MCHC 32.0, RDW Std Deviation 47.1 H, RDW Coeff of Rachel 14.6, Plt Count 251, MPV 9.5 05/01/19 06:20: Sodium 145, Potassium 3.8, Chloride 116 H, Carbon Dioxide 28.0, Anion Gap 1 L, BUN 17, Creatinine 0.97, Estim Creat Clear Calc 91.98, Est GFR (MDRD) Af Amer 104, Est GFR (MDRD) Non-Af 86, BUN/Creatinine Ratio 17.5, Glucose 102, Calcium 8.0 L Current Medications Acetaminophen (Tylenol) 650 mg RECTAL Q4H PRN PRN PRN Reason: Pain Score 1-10/Temp > 100.7 F Acetaminophen (Tylenol) 650 mg PO Q6H PRN PRN PRN Reason: Pain Score 1-10/10 Last Admin: 04/30/19 20:07 Dose: 650 mg Documented by: Glucagon () 1 mg IM .X1 PRN PRN Reason: Hypoglycemia Dextrose (Dextrose 10%-Water) 250 mls @ 999 mls/hr IV .Q16M PRN; Protocol PRN Reason: HYPOGLYCEMIA Pantoprazole Sodium 40 mg/ (Sodium Chloride) 110 mls @ 330 mls/hr IV Q12 [facility] Last Admin: 05/01/19 09:35 Dose: 330 mls/hr Documented by: Lactated Ringer's () 1,000 mls @ 100 mls/hr IV .Q10H [facility] Last Infusion: 05/01/19 09:41 Dose: 0 mls/hr Documented by: Morphine Sulfate () 2 mg IV Q3H PRN PRN PRN Reason: Pain Score 6-10/10 Ondansetron HCl (Zofran) 4 mg IV Q8H PRN PRN PRN Reason: NAUSEA/VOMITING Sodium Chloride () 10 - 40 ml IV UD PRN PRN Reason: SALINE FLUSH Sucralfate (Carafate) 1 gm PO 1HR_ACHS [facility] Last Admin: 05/01/19 09:35 Dose: 1 gm Documented by: STROKE Vital Signs/Narrative: Vital Signs Temp Pulse Resp BP Pulse Ox 05/01/19 09:22 36.8 C 86 16 112/69 98 05/01/19 08:51 37.0 C 87 16 103/65 99 05/01/19 08:46 85 16 100/59 L 98 05/01/19 08:41 87 16 98/63 98 05/01/19 08:36 36.8 C 97 16 103/59 L 96 05/01/19 07:30 91 05/01/19 06:55 96 Medical Necessity - Tobacco Use Smoking Status: Never smoker Assessment/Plan All Active Problems (Last Reviewed 04/30/19 @ 10:53 by Susan Ervin PA-C) Peptic ulcer disease (Acute) Hypercholesterolemia (Acute) GI bleed (Acute) Orthostatic hypotension (Acute) Syncope and collapse (Acute) 1. Acute GI bleed * EGD x 2 showed non-bleeding duodenal ulcers * Patient has known history of peptic ulcer disease roughly 8 years ago and has recently been taking aspirin twice daily for broken rib that he sustained when he fell when he was intoxicated * Continue IV PPI * Discussed with Dr. Frazier, who recommends transfer to tertiary facility that does capsule endoscopy. * DW patient about Dr. Frazier's recommendations. He would prefer to stay here and monitor his H/H. I told him that is reasonable, but that in the event if his situation would worsen that he would need to be transferred. * I told him I suspected he bled from his ulcers that sealed off. Some of his blood from that episode may not be completely evacuated. However, I told I cannot determine if there may be another source of bleeding. He understands and accepts risks of remaining here * Continue to monitor H/H. No need to transfuse at this time. 2. Syncope * May be vasovagal but cannot rule out acute blood loss at this time. Is possible the blood count may be lagging behind the actual levels * IV fluids * check knee xray 3. VTE prophylaxis: SCDs. Chemical prophylaxis is contraindicated in light of the acute hemorrhage. Greater than 35 min of which greater than 50% of the time was counseling patient about his GI bleed, surgical recommendations, and current plan. DW family at bedside. Code Visit Inpatient E&M: 81786 Subs Hosp L3
[2019-05-01] MEDS: Ferrous Sulfate 325 MG Tablet PO (11:43)
[2019-05-01 12:37] LABS: Hemoglobin 8.6 g/dL (13.0-16.5); Mean Corp Hgb Conc 31.9 g/dL (32-36); Mean Corpuscular Hgb 28.8 pg (27.0-32.0); Mean Corpuscular Volume 90.3 fL (80-94); Mean Platelet Vol. 9.5 fl (6.2-12.0); Platelet Count 249 K/mm3 (150-450); RBC Distribution Width CV 14.7 % (11.6-14.6); RBC Distribution Width SD 47.8 fl (35.1-43.9); Red Blood Count 2.99 M/mm3 (4.6-6.2); White Blood Count 4.5 K/mm3 (4.4-11.0)
--- NOTE | 2019-05-01 13:50 | RAD_ITS ---
STUDY: X-RAY - LEFT KNEE REASON FOR EXAM: Male, 53 years old. Pain after recent fall TECHNIQUE: 3 view(s) of the knee. COMPARISON: None. FINDINGS: Normal visualized distal femur. Normal visualized proximal tibia and fibula. Normal proximal tibiofibular articulation. Normal medial femorotibial compartment. Normal lateral femorotibial compartment. Normal patellofemoral articulation. The soft tissue structures are unremarkable. RAD/Knee 3 Views IMPRESSION: Normal x-ray examination of the knee. Electronically Signed: Dave Borges MD at 14:39 EST , Service support ,
[2019-05-01 19:07] LABS: Hematocrit 28.6 % (40-54); Hemoglobin 8.9 g/dL (13.0-16.5); Mean Corp Hgb Conc 31.1 g/dL (32-36); Mean Corpuscular Hgb 28.1 pg (27.0-32.0); Mean Corpuscular Volume 90.2 fL (80-94); Mean Platelet Vol. 9.6 fl (6.2-12.0); Platelet Count 250 K/mm3 (150-450); RBC Distribution Width CV 14.6 % (11.6-14.6); RBC Distribution Width SD 47.8 fl (35.1-43.9); Red Blood Count 3.17 M/mm3 (4.6-6.2); White Blood Count 5.1 K/mm3 (4.4-11.0)
[2019-05-02 00:32] LABS: Hematocrit 26.7 % (40-54); Hemoglobin 8.6 g/dL (13.0-16.5); Mean Corp Hgb Conc 32.2 g/dL (32-36); Mean Corpuscular Hgb 29.1 pg (27.0-32.0); Mean Corpuscular Volume 90.2 fL (80-94); Mean Platelet Vol. 9.5 fl (6.2-12.0); Platelet Count 241 K/mm3 (150-450); RBC Distribution Width CV 14.5 % (11.6-14.6); RBC Distribution Width SD 47.1 fl (35.1-43.9); Red Blood Count 2.96 M/mm3 (4.6-6.2); White Blood Count 5.8 K/mm3 (4.4-11.0)
[2019-05-02 03:00] VITALS: BP 106/73; PULSE 92; RESP 16; TEMP 37.2; O2SAT 96
[2019-05-02 03:12] VITALS: PULSE 82
[2019-05-02] MEDS: Acetaminophen 325 MG Tablet 650 MG PO (03:22)
[2019-05-02 06:13] LABS: Hematocrit 26.9 % (40-54); Hemoglobin 8.7 g/dL (13.0-16.5); Mean Corp Hgb Conc 32.3 g/dL (32-36); Mean Corpuscular Hgb 28.9 pg (27.0-32.0); Mean Corpuscular Volume 89.4 fL (80-94); Mean Platelet Vol. 9.6 fl (6.2-12.0); Platelet Count 246 K/mm3 (150-450); RBC Distribution Width CV 14.4 % (11.6-14.6); RBC Distribution Width SD 46.4 fl (35.1-43.9); Red Blood Count 3.01 M/mm3 (4.6-6.2); White Blood Count 4.7 K/mm3 (4.4-11.0)
[2019-05-02] MEDS: Sucralfate 1 GM Tablet PO ×2 (06:38→11:43)
[2019-05-02 07:03] VITALS: PULSE 87
[2019-05-02 07:45] VITALS: O2SAT 93
--- NOTE | 2019-05-02 08:06 | PCM.PN.SRG ---
Patient Problems: Active and Suspected Problems (Last Reviewed 04/30/19 @ 10:53 by Susan Ervin PA-C) Peptic ulcer disease (Acute) Hypercholesterolemia (Acute) GI bleed (Acute) Orthostatic hypotension (Acute) Syncope and collapse (Acute) Subjective: Patient reports no bloody or black bowel movements overnight - Physical Exam Vitals/I&O's: Vital Signs Temp Pulse Resp BP Pulse Ox 98.9 F 87 16 106/73 96 05/02/19 03:00 05/02/19 07:03 05/02/19 03:00 05/02/19 03:00 05/02/19 03:00 Oxygen Delivery Method Room Air Weight: 202 lb 13.204 oz Body Mass Index (BMI) 29.0 Intake and Output for Last 24 Hours 04/30/19 05/01/19 05/02/19 23:59 23:59 23:59 Intake Total 4740.0 / 4740.0 5658.33 / 5658.33 400 / 400 Output Total 775 / 775 150 / 150 600 / 600 Balance 3965.0 / 3965.0 5508.33 / 5508.33 -200 / -200 General: Alert, Oriented x3 Neck: No JVD Abdomen: Soft, Non Tender, Non-Distended Musculoskeletal: No Muscle Wasting Laboratory Results 05/01/19 12:18: WBC 4.5, RBC 2.99 L, Hgb 8.6 L, Hct 27.0 L, MCV 90.3, MCH 28.8, MCHC 31.9 L, RDW Std Deviation 47.8 H, RDW Coeff of Rachel 14.7 H, Plt Count 249, MPV 9.5 05/01/19 18:39: WBC 5.1, RBC 3.17 L, Hgb 8.9 L, Hct 28.6 L, MCV 90.2, MCH 28.1, MCHC 31.1 L, RDW Std Deviation 47.8 H, RDW Coeff of Rachel 14.6, Plt Count 250, MPV 9.6 05/02/19 00:10: WBC 5.8, RBC 2.96 L, Hgb 8.6 L, Hct 26.7 L, MCV 90.2, MCH 29.1, MCHC 32.2, RDW Std Deviation 47.1 H, RDW Coeff of Rachel 14.5, Plt Count 241, MPV 9.5 05/02/19 05:50: WBC 4.7, RBC 3.01 L, Hgb 8.7 L, Hct 26.9 L, MCV 89.4, MCH 28.9, MCHC 32.3, RDW Std Deviation 46.4 H, RDW Coeff of Rachel 14.4, Plt Count 246, MPV 9.6 Current Medications Acetaminophen (Tylenol) 650 mg RECTAL Q4H PRN PRN PRN Reason: Pain Score 1-10/Temp > 100.7 F Acetaminophen (Tylenol) 650 mg PO Q6H PRN PRN PRN Reason: Pain Score 1-10/10 Last Admin: 05/02/19 03:22 Dose: 650 mg Documented by: Ferrous Sulfate (Ferrous Sulfate) 325 mg PO DAILY@1200 LISA Last Admin: 05/01/19 11:43 Dose: 325 mg Documented by: Glucagon () 1 mg IM .X1 PRN PRN Reason: Hypoglycemia Dextrose (Dextrose 10%-Water) 250 mls @ 999 mls/hr IV .Q16M PRN; Protocol PRN Reason: HYPOGLYCEMIA Morphine Sulfate () 2 mg IV Q3H PRN PRN PRN Reason: Pain Score 6-10/10 Ondansetron HCl (Zofran) 4 mg IV Q8H PRN PRN PRN Reason: NAUSEA/VOMITING Pantoprazole Sodium (Protonix) 20 mg PO BID [facility] Sodium Chloride () 10 - 40 ml IV UD PRN PRN Reason: SALINE FLUSH Sucralfate (Carafate) 1 gm PO 1HR_ACHS [facility] Last Admin: 05/02/19 06:38 Dose: 1 gm Documented by: Medical Necessity - Tobacco Use Smoking Status: Never smoker Assessment/Plan All Active Problems (Last Reviewed 04/30/19 @ 10:53 by Susan Ervin PA-C) Peptic ulcer disease (Acute) Hypercholesterolemia (Acute) GI bleed (Acute) Orthostatic hypotension (Acute) Syncope and collapse (Acute) 53-year-old male with black stools and duodenal ulcer 1. Patient reports no bloody or black stools overnight. He is not having any abdominal pain and his hemoglobin has remained stable. I will advance him to a regular diet. I have change his PPI to oral. If he tolerates regular diet and has no further bloody stools he may be discharged. I have ordered PPI and Carafate as an outpatient. I advised the patient to follow-up with his PCP for repeat hemoglobin check and to work-up possible seizure activity. Patient's knee x-ray was negative for any fracture. Suhail Frazier MD Pager: [facility] [address] [place] [address], [address] [place] [phone] Office:
[2019-05-02 09:40] VITALS: BP 118/70; PULSE 94; RESP 14; TEMP 36.9; O2SAT 97
[2019-05-02] MEDS: Pantoprazole Sodium 20 MG Tablet PO (09:44)
--- NOTE | 2019-05-02 10:31 | DCINST_ITS ---
- Discharge Diagnoses Current Active Problems: Current Active and Chronic Problems (Last Reviewed 04/30/19 @ 10:53 by Susan Ervin PA-C) Peptic ulcer disease (Acute) Hypercholesterolemia (Acute) GI bleed (Acute) Orthostatic hypotension (Acute) Syncope and collapse (Acute) You will use the following diet at home:: No restrictions Your food should be the consistency of: Regular Call your doctor if you observe: - - blood in stools. dark tarry stools Allergies/Adverse Reactions: Allergies No Known Allergies Allergy (Verified 04/30/19 06:03) Medications to take at Discharge Ezetimibe 1 tab PO DAILY 04/30/19 Fenofibrate Nanocrystallized [Fenofibrate] 1 tab PO DAILY 04/30/19 Fluticasone 0.05% [Flonase Nasal [place]] 2 spry NARES DAILY 04/30/19 Ferrous Sulfate 325 mg PO DAILY@1200 #30 tab 05/02/19 Pantoprazole Sodium [Protonix] 20 mg PO BID #60 tab 05/02/19 Sucralfate [Carafate] 1 gm PO 1HR_ACHS #120 tab 05/02/19 The following prescriptions were given: Sucralfate [Carafate] 1 gm PO 1HR_ACHS #120 tab Transmission Status: Received by [facility] Ferrous Sulfate 325 mg PO DAILY@1200 #30 tab Transmission Status: Pending to [facility] Pantoprazole Sodium [Protonix] 20 mg PO BID #60 tab Transmission Status: Received by [facility] Orders to be completed after discharge: CBC-Complete Blood Cnt No Diff Time Frame: 1 Week, Facility: [facility], Location: Laboratory Primary Care Physician: Demetri Benedict [Primary Care Provider] - Within 2 Weeks Test Results: Test results from this visit will be discussed in further detail at your follow- up appointment, if applicable. Proposed Discharge Date: 05/02/19
--- NOTE | 2019-05-02 10:33 | PCM.DC.SUM ---
Discharge Date and Diagnosis - Problem List Patient Problems: Active and Suspected Problems (Last Reviewed 04/30/19 @ 10:53 by Susan Ervin PA-C) Peptic ulcer disease (Acute) Hypercholesterolemia (Acute) GI bleed (Acute) Orthostatic hypotension (Acute) Syncope and collapse (Acute) Date of Admission: 04/30/19 Date of Discharge: 05/02/19 - Primary Discharge Diagnosis Active and Suspected Problems (Last Reviewed 04/30/19 @ 10:53 by Susan Ervin PA-C) 1. Acute GI bleed EGD x 2 showed non-bleeding duodenal ulcers Patient has known history of peptic ulcer disease roughly 8 years ago and has recently been taking aspirin twice daily for broken rib that he sustained when he fell when he was intoxicated PO PPI, sucralfate and ferrous sulfate H/H stable Follow up H/H as outpt 2. Duodenal ulcers: likely source of bleed. Meds as above. 2. Syncope May be vasovagal but cannot rule out acute blood loss at this time. Is possible the blood count may be lagging behind the actual levels IV fluids check knee xray Hospital Course and Treatment Imaging Results: Clinical Impression(s) from Imaging Studies KUB X-Ray 04/30/19 07:23 IMPRESSION: Tip of the nasogastric tube is in the stomach, however, the sidehole is probably within the distal esophagus. Recommend advancing the nasogastric tube at least 5 cm. Electronically Signed: Dhiraj William MD at 8:01 EST , Service support , Brain CT 04/30/19 10:35 IMPRESSION: Normal unenhanced CT scan of the brain. Electronically Signed: Theodore Greenwood MD at 11:01 EST Tel , Service support , Knee X-Ray 05/01/19 13:50 IMPRESSION: Normal x-ray examination of the knee. Electronically Signed: Dave Borges MD at 14:39 EST , Service support , Suhail Calabretta, general surgery Operations: None Procedures: EGD Summary of Care Provided: The patient is a 53 year old M resents with syncope. Patient had acute onset of feeling the need to have a bowel movement got up out of car and then passed out. Brought to the hospital and was having active melena. Patient had a history of melena before due to peptic ulcer disease. Patient was have active melena in the hospital. Patient was initially started on a pantoprazole drip. EGD showed duodenal ulcers. Patient did continue to have melena though no bleeding was noted from the ulcers. Repeat EGD performed on the seventh again showed duodenal ulcers but no bleeding. Patient was monitored here and his hemoglobin remained stable. Patient did have acute blood loss anemia due to bleeding likely from the peptic ulcer disease that likely had some type of arterial bleed that sealed itself off. No indication for transfusion the patient will be on ferrous sulfate. For his duodenal ulcers, patient will be on pantoprazole as well as sucralfate. Syncope is likely vasovagal induced due to the GI distress the patient was undergoing with the acute GI bleed. Patient had recently broken some ribs after a fall presumably while he was intoxicated. Patient afterwards, was taking aspirin twice daily. He did not know the dosing of the aspirin notes presume that he was taking a higher dose rather than a baby aspirin. That likely was a culprit to his peptic ulcer disease. [] Patient Problems: Active and Suspected Problems (Last Reviewed 04/30/19 @ 10:53 by Susan Ervin PA-C) Peptic ulcer disease (Acute) Hypercholesterolemia (Acute) GI bleed (Acute) Orthostatic hypotension (Acute) Syncope and collapse (Acute) Subjective: no further melena - Physical Exam Vitals/I&O's: Vital Signs Temp Pulse Resp BP Pulse Ox 36.9 C 94 14 118/70 97 05/02/19 09:40 05/02/19 09:40 05/02/19 09:40 05/02/19 09:40 05/02/19 09:40 Oxygen Delivery Method Room Air Weight: 92 kg Body Mass Index (BMI) 29.0 Intake and Output for Last 24 Hours 04/30/19 05/01/19 05/02/19 23:59 23:59 23:59 Intake Total 4740.0 / 4740.0 5658.33 / 5658.33 1238.33 / 1238.33 Output Total 775 / 775 150 / 150 600 / 600 Balance 3965.0 / 3965.0 5508.33 / 5508.33 638.33 / 638.33 General: Alert, No apparent distress HEENT: Normocephalic Oral: Moist Mucosa, No Gingival or Mucosal Lesions/ Ulcerations Neck: No Nodes, Trachea Midline Lungs: Clear to auscultation, Normal air movement, No rhonchi, No wheeze Cardiovascular: Regular rate, Regular Rhythm, Normal S1, Normal S2, No murmurs Abdomen: Bowel Sounds Present, Soft, Non Tender, Non-Distended Psych/Mental Status: Normal Affect, Appropriate Laboratory Results 05/01/19 12:18: WBC 4.5, RBC 2.99 L, Hgb 8.6 L, Hct 27.0 L, MCV 90.3, MCH 28.8, MCHC 31.9 L, RDW Std Deviation 47.8 H, RDW Coeff of Rachel 14.7 H, Plt Count 249, MPV 9.5 05/01/19 18:39: WBC 5.1, RBC 3.17 L, Hgb 8.9 L, Hct 28.6 L, MCV 90.2, MCH 28.1, MCHC 31.1 L, RDW Std Deviation 47.8 H, RDW Coeff of Rachel 14.6, Plt Count 250, MPV 9.6 05/02/19 00:10: WBC 5.8, RBC 2.96 L, Hgb 8.6 L, Hct 26.7 L, MCV 90.2, MCH 29.1, MCHC 32.2, RDW Std Deviation 47.1 H, RDW Coeff of Rachel 14.5, Plt Count 241, MPV 9.5 05/02/19 05:50: WBC 4.7, RBC 3.01 L, Hgb 8.7 L, Hct 26.9 L, MCV 89.4, MCH 28.9, MCHC 32.3, RDW Std Deviation 46.4 H, RDW Coeff of Rachel 14.4, Plt Count 246, MPV 9.6 Current Medications Acetaminophen (Tylenol) 650 mg RECTAL Q4H PRN PRN PRN Reason: Pain Score 1-10/Temp > 100.7 F Acetaminophen (Tylenol) 650 mg PO Q6H PRN PRN PRN Reason: Pain Score 1-10/10 Last Admin: 05/02/19 03:22 Dose: 650 mg Documented by: Ferrous Sulfate (Ferrous Sulfate) 325 mg PO DAILY@1200 [facility] Last Admin: 05/01/19 11:43 Dose: 325 mg Documented by: Glucagon () 1 mg IM .X1 PRN PRN Reason: Hypoglycemia Dextrose (Dextrose 10%-Water) 250 mls @ 999 mls/hr IV .Q16M PRN; Protocol PRN Reason: HYPOGLYCEMIA Morphine Sulfate () 2 mg IV Q3H PRN PRN PRN Reason: Pain Score 6-10/10 Ondansetron HCl (Zofran) 4 mg IV Q8H PRN PRN PRN Reason: NAUSEA/VOMITING Pantoprazole Sodium (Protonix) 20 mg PO BID [facility] Last Admin: 05/02/19 09:44 Dose: 20 mg Documented by: Sodium Chloride () 10 - 40 ml IV UD PRN PRN Reason: SALINE FLUSH Sucralfate (Carafate) 1 gm PO 1HR_ACHS [facility] Last Admin: 05/02/19 06:38 Dose: 1 gm Documented by: Discharge Diet: No Restrictions Call your doctor if you observe: - - blood in stools. dark tarry stools Home Medications: Medications to take at Discharge Ezetimibe 1 tab PO DAILY 04/30/19 Fenofibrate Nanocrystallized [Fenofibrate] 1 tab PO DAILY 04/30/19 Fluticasone 0.05% [Flonase Nasal [place]] 2 spry NARES DAILY 04/30/19 Ferrous Sulfate 325 mg PO DAILY@1200 #30 tab 05/02/19 Pantoprazole Sodium [Protonix] 20 mg PO BID #60 tab 05/02/19 Sucralfate [Carafate] 1 gm PO 1HR_ACHS #120 tab 05/02/19 Following Prescrptions Were Given to Patient: Sucralfate [Carafate] 1 gm PO 1HR_ACHS #120 tab Transmission Status: Received by [facility] Ferrous Sulfate 325 mg PO DAILY@1200 #30 tab Transmission Status: Pending to [facility] Pantoprazole Sodium [Protonix] 20 mg PO BID #60 tab Transmission Status: Received by [facility] Other Amb Orders: CBC-Complete Blood Cnt No Diff Time Frame: 1 Week, Facility: [facility], Location: Laboratory Primary Care Physician: Demetri Benedict [Primary Care Provider] - Within 2 Weeks Disposition: Home Minutes spent on discharge:: 35 Patient Condition:: Good Medical Necessity - Tobacco Use Smoking Status: Never smoker Meaningful Use Info Meaningful Use Diagnoses (Choose all that apply): None applicable Code Visit Inpatient E&M: 27804 Disch Hosp
[2019-05-02] MEDS: Ferrous Sulfate 325 MG Tablet PO (11:43)
== END 2019-05-02 12:31 | disposition home or self-care (01) | DRG 378 ==
LOC: ED 07:44 → PCU 08:35
PROVIDERS: Surgery; Emergency Provider Emergency Medicine; PCP Internal Medicine
PROC: 0DJ08ZZ Inspection of Upper Intestinal Tract, Via Natural or Artificial Opening Endoscopic (ICD-10-PCS; CPT 43235; principal; 2019-04-30 11:25)
DX: K26.4 Chronic or unspecified duodenal ulcer with hemorrhage (principal); D62 Acute posthemorrhagic anemia; I95.1 Orthostatic hypotension; E78.00 Pure hypercholesterolemia, unspecified; S00.511A Abrasion of lip, initial encounter; W18.30XA Fall on same level, unspecified, initial encounter; Y93.01 Activity, walking, marching and hiking; Y92.481 Parking lot as the place of occurrence of the external cause; T39.015A Adverse effect of aspirin, initial encounter
CPT/HCPCS: 36415; 70450; 73562; 74018; 80048; 85014; 85018; 85025; 85027; 86850; 86900; 86901; 88305; 88342; 93005; 99285; J7030; J7120; A4216; J3490